=== PATIENT | male | born 1970 | race African-American/Black ===

== ENCOUNTER 2019-12-04 04:00 | Emergency (ER) | payer MEDICAID, OTHER ==
[~2019-12-04] VITALS: Ht 185.4 cm; Wt 118.0 kg
[2019-12-04 04:19] VITALS: BP 132/89
[2019-12-04] MEDS ORDERED: AZITHROMYCIN 500 MG TABLET PO ONE (04:45)
[2019-12-04] MEDS ORDERED: CEFTRIAXONE SODIUM 250 MG/VIAL IM ONE (04:45)
[2019-12-04] MEDS ORDERED: LIDOCAINE HCL/PF 1% 10 MG/ML 5ML VIAL IJ ONE (05:00)
[2019-12-04] MEDS ORDERED: KETOROLAC 30MG/ML VIAL IM ONE (05:00)
[2019-12-04 05:26] LABS: CLARITY URINE CLEAR (CLEAR); COLOR URINE YELLOW (YELLOW); KETONES URINE TRACE (NEGATIVE); LEUKOCYTE ESTERASE URINE 2+ (NEGATIVE); NITRITE URINE NEGATIVE (NEGATIVE); OCCULT BLOOD URINE 1+ (NEGATIVE); PROTEIN URINE 1+ (NEGATIVE); SPECIFIC GRAVITY URINE 1.026 (1.005-1.030)
== END 2019-12-04 06:03 | disposition home or self-care (01) ==
LOC: ER 04:00
DX: N39.0 Urinary tract infection, site not specified (principal); Z11.3 Encounter for screening for infections with a predominantly sexual mode of transmission
CPT/HCPCS: 81003; 87077; 87086; 96372; 99284; J0696; J1885; J3490

== ENCOUNTER 2021-04-29 17:43 | Emergency (ER) | payer MEDICAID, OTHER ==
[~2021-04-29] VITALS: Ht 193 cm; Wt 160.0 kg
[2021-04-29] MEDS ORDERED: CEPHALEXIN 250MG CAPSULE PO ONE (22:00)
[2021-04-29] MEDS ORDERED: SULFAMETHOXAZOLE/TRIMETHOPRIM 800/160MG TABLET PO ONE (22:00)
[2021-04-29] MEDS ORDERED: SULF1TAB48 MT (22:24)
[2021-04-29] MEDS ORDERED: CEPH500T MT (22:24)
[2021-04-29 22:41] VITALS: BP 162/100
== END 2021-04-29 22:42 | disposition home or self-care (01) ==
LOC: ER 17:50
DX: L03.811 Cellulitis of head [any part, except face] (principal); I10 Essential (primary) hypertension
CPT/HCPCS: 93005; 99283

== ENCOUNTER 2022-05-01 22:33 | Emergency (ER) | payer MEDICAID, OTHER ==
[~2022-05-01 22:33] MED LIST: CEPH500T MT; SULF1TAB48 MT
[2022-05-02] MEDS ORDERED: INDO50CA98 MT (06:39)
== END 2022-05-02 00:34 | disposition left against medical advice (07) ==
LOC: ER 22:33
DX: Z53.21 Procedure and treatment not carried out due to patient leaving prior to being seen by health care provider (principal)

== ENCOUNTER 2022-05-02 02:31 | Emergency (ER) | payer MEDICAID, OTHER ==
[~2022-05-02] VITALS: Ht 193 cm; Wt 166.8 kg
[2022-05-02] MEDS ORDERED: KETOROLAC 60MG/2ML VIAL IM ONE (06:30)
[2022-05-02] MEDS ORDERED: INDO50CA98 MT (06:39)
[2022-05-02 06:52] VITALS: BP 120/78
== END 2022-05-02 06:54 | disposition home or self-care (01) ==
LOC: ER 02:31
DX: M10.9 Gout, unspecified (principal); M25.532 Pain in left wrist; E78.00 Pure hypercholesterolemia, unspecified; I10 Essential (primary) hypertension
CPT/HCPCS: 96372; 99283; J1885